=== PATIENT | male | born 1965 | race Caucasian/White ===

== ENCOUNTER 2018-03-12 11:57 | Emergency (ER) | payer MEDICAID ==
[~2018-03-12] VITALS: Ht 177.8 cm; Wt 62.0 kg
[2018-03-12 12:50] LABS: BG BASE EXCESS 3.3 mmol/L (-2.0-2.0); BG DEOXYHEMOGLOBIN 3.3 % (0.0-5.0); BG HCO3 ACT 28.3 mmol/L (22.0-26.0); BG METHEMOGLOBIN 0.2 % (0.0-1.5); BG OXYGEN SATURATION 96.6 % (92.0-98.5); BG OXYHEMOGLOBIN 93.5 % (94.0-97.0); BG PCO2 44.8 mmHg (35.0-45.0); BG PH 7.419 (7.350-7.450); BG PO2 86.4 mmHg (75.0-100.0); BG SAMPLE SITE RIGHT BRACHIAL; BG TOTAL HEMOGLOBIN 13.5 g/dL (12.0-18.0); BG VENT MODE ROOM AIR
[2018-03-12 13:35] LABS: BASOPHILS % 0.4 % (0.0-2.0); EOSINOPHILS % 0.1 % (0.0-5.0); HEMATOCRIT. 37.7 % (42.0-52.0); LYMPHOCYTES % 10.6 % (20.0-50.0); MEAN CORPUSCULAR HEMOGLOBIN 31.8 pg (28.0-32.0); MEAN CORPUSCULAR VOLUME 92.4 fL (80.0-94.0); MEAN PLATELET VOLUME 9.8 fl (7.4-10.4); MONOCYTES % 8.3 % (2.0-8.0); NEUTROPHILS % 80.6 % (40.0-76.0); PLATELET 184 x1000/uL (130-400); RED BLOOD CELL COUNT 4.08 mill/uL (4.7-6.1); RED CELL DISTRIBUTION WIDTH 15.9 % (11.6-14.6)
[2018-03-12 13:39] LABS: CHLORIDE 102 mEq/L (98-107)
[2018-03-12 13:43] LABS: ETHANOL BLOOD < 10 mg/dL
[2018-03-12 13:44] LABS: PROTHROMBIN TIME 9.9 sec (9.4-11.6)
[2018-03-12 13:48] LABS: CREATINE KINASE 614 IU/L (39-308)
[2018-03-12] MEDS ORDERED: SODIUM CHLORIDE 0.9% 1,000 ML IV ONE (16:56)
[2018-03-12] MEDS ORDERED: DEXTROSE 50% WATER 50ML SYRINGE IV ONE (17:33)
[2018-03-12 18:08] VITALS: BP 128/72
[2018-03-12] MEDS ORDERED: ACETAMINOPHEN 325MG TABLET PO PRN (19:00)
[2018-03-12] MEDS ORDERED: CLONIDINE 0.1MG TABLET PO PRN (19:00)
[2018-03-12] MEDS ORDERED: ENOXAPARIN 40MG/0.4ML SYR SUBCUT SCH (19:00)
[2018-03-12] MEDS ORDERED: DOCUSATE SODIUM 100MG CAPSULE PO PRN (19:00)
[2018-03-12] MEDS ORDERED: SODIUM CHL 0.45% + KCL 20MEQ/L 1,000 ML IV SCH (19:00)
[2018-03-12] MEDS ORDERED: ONDANSETRON HCL 4MG/2ML VIAL IV PRN (19:00)
[2018-03-12] MEDS ORDERED: ASPIRIN 81MG EC TABLET PO ONE (19:00)
[2018-03-13] MEDS ORDERED: LISINOPRIL 10MG TABLET PO SCH (09:00)
== END 2018-03-12 18:39 | disposition left against medical advice (07) ==
LOC: ER 12:10 → EDBEDREQ 17:02 → EDBEDREQTM 17:02 → ENRESERV 17:08 → CANBEDREQ 18:16 → ER 18:39
DX: E11.649 Type 2 diabetes mellitus with hypoglycemia without coma (principal); E86.0 Dehydration; J44.9 Chronic obstructive pulmonary disease, unspecified; D64.9 Anemia, unspecified; G90.8 Other disorders of autonomic nervous system; Z79.4 Long term (current) use of insulin
CPT/HCPCS: 36415; 36600; 71045; 80053; 82375; 82550; 82805; 82962; 83036; 83605; 83690; 83880; 84443; 84484; 85025; 85610; 93005; 96360; 99285; G0482; J7030